=== PATIENT | female | born 1960 | race Caucasian/White ===

== ENCOUNTER 2018-12-23 08:55 | Emergency (ER) | payer OTHER ==
[~2018-12-23] VITALS: Ht 167.6 cm; Wt 83.5 kg
[2018-12-23 12:07] VITALS: BP 115/65
== END 2018-12-23 12:10 | disposition home or self-care (01) ==
LOC: ED 10:24
DX: K92.1 Melena (principal); Z86.19 Personal history of other infectious and parasitic diseases
CPT/HCPCS: 36415; 74176; 80053; 83690; 85025; 85610; 99284